=== PATIENT | female | born 1985 | race Caucasian/White ===

== ENCOUNTER 2022-09-08 12:28 | Emergency (ER) | payer SELFPAY ==
[~2022-09-08] VITALS: Ht 167.6 cm; Wt 80.0 kg
[2022-09-08 12:44] VITALS: BP 136/86
[2022-09-08] MEDS: ACETAMINOPHEN 325MG TABLET PO ONE (14:07)
[2022-09-08] MEDS ORDERED: TOPUD MT (14:16)
[2022-09-08] MEDS: LORAZEPAM 2MG/ML CPJ IM ONE (14:26)
[2022-09-08] MEDS: DIPHENHYDRAMINE 50MG/ML VIAL IM ONE (14:26)
[2022-09-08] MEDS: HALOPERIDOL LACTATE 5MG/ML VIAL IM ONE (14:27)
== END 2022-09-08 14:50 | disposition home or self-care (01) ==
LOC: ER 12:28
DX: S01.81XA Laceration without foreign body of other part of head, initial encounter (principal); Y04.0XXA Assault by unarmed brawl or fight, initial encounter; Y93.89 Activity, other specified; Y92.89 Other specified places as the place of occurrence of the external cause; Y99.8 Other external cause status
CPT/HCPCS: 12011; 99283